=== PATIENT | female | born 1970 | race Two or more races ===

== ENCOUNTER 2025-09-12 12:45 | Day surgery (SDC) | payer MEDICAID, SELFPAY ==
[2025-09-09 07:29] VITALS: BMI 31.8
--- NOTE | 2025-09-09 08:10 | EKG_ITS ---
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
[2025-09-09 08:38] LABS: Collection Type, Urine Clean Catch
[2025-09-09 08:44] LABS: Basophils # (Auto) 0.0 Thou/mm3 (0.0-0.2); Basophils % (Auto) 1 % (0-2.5); Eosinophils # (Auto) 0.1 Thou/mm3 (0.0-0.5); Eosinophils % (Auto) 2 % (0-10); Hematocrit 34.7 % (36.0-46.0); Hemoglobin 11.5 g/dL (12.0-16.0); Immature Granulocytes Auto 0.01 Thou/mm3 (0.00-0.00); Lymphocytes # (Auto) 1.6 Thou/mm3 (1.0-4.8); Lymphocytes % (Auto) 37 % (10-50); Mean Corpuscular HGB Conc 33.1 g/dl (31.0-37.0); Mean Corpuscular Hemoglobin 29.1 pg (25.0-35.0); Mean Corpuscular Volume 88 fL (80-100); Monocytes # (Auto) 0.4 Thou/mm3 (0.0-0.8); Monocytes % (Auto) 10 % (0-12); Neutrophils # (Auto) 2.2 Thou/mm3 (1.8-7.7); Neutrophils % (Auto) 50 % (37-80); Nucleated Red Blood Cell # 0.00 Thou/mm3 (0.00-0.00); Nucleated Red Blood Cell % 0 /100 WBC (0); Platelet Count 225 Thou/mm3 (140-440); RDW Standard Deviation 38.9 fL (36.4-46.3); Red Blood Count 3.95 Miln/mm3 (4.00-5.20); White Blood Count 4.4 Thou/mm3 (3.6-11.0)
[2025-09-09 08:52] LABS: Partial Thromboplastin Time 26.8 Seconds (22.0-36.0)
[2025-09-09 08:54] LABS: Bacteria,Urine Rare; Bilirubin,Urine Negative (Negative); Blood,Urine Negative (Negative); Clarity,Urine Clear (Clear/Hazy); Color,Urine Lt-Yellow (Lt Yel-Yel); Glucose, Urine Trace (Negative); Hyaline Casts,Urine < 1 /hpf (0-1); Ketones,Urine Negative (Negative); Leukocyte Esterase,Urine Positive (Negative); Nitrite,Urine Negative (Negative); PH,Urine 5.5 (5.0-7.0); Protein,Urine Negative (Neg - Trace); RBC,Urine 2 /hpf (0-3); Specific Gravity,Urine 1.015 (1.001-1.035); Squamous Epithelial Cell,Urine 3 /hpf (0-5); Urobilinogen,Urine Negative mg/dL (0.0-1.0); WBC,Urine 14 /hpf (0-5)
[2025-09-09 09:13] LABS: Alanine Aminotransferase 13 U/L (10-49); Albumin, Serum 4.4 gm/dL (3.5-5.0); Albumin/Globulin Ratio 1.1 (1.2-2.2); Alkaline Phosphatase 103 U/L (46-116); Anion Gap 9 (7-16); Aspartate Amino Transferase 17 U/L (0-34); BUN/Creatinine Ratio 32 Ratio (12-20); Bilirubin,Total 0.3 mg/dL (0.3-1.2); Blood Urea Nitrogen 32 mg/dL (9-23); Calcium 9.4 mg/dL (8.3-10.6); Calcium (Corrected) 9.4 mg/dL (8.5-10.1); Carbon Dioxide 24.8 mMol/L (20.0-31.0); Chloride 106 mMol/L (98-107); Creatinine (Component) 1.0 mg/dL (0.6-1.3); Estimated Creatinine Clearance 62.7 mL/min (>60); Globulin 4.0 gm/dL (2.3-3.5); Glucose 210 mg/dL (74-106); Osmolality,Calculated 292 (275-295); Potassium 5.0 mMol/L (3.4-5.1); Sodium 140 mMol/L (136-145); Total Protein 8.4 gm/dL (5.7-8.2); eGFR > 60 See Note
[2025-09-12] VITALS (8 sets, daily range): BP systolic 120–165; BP diastolic 59–79; PULSE 76–89; RESP 13–20; TEMP 36.2–36.9; O2SAT 97–100; BMI 30.8
--- NOTE | 2025-09-12 18:03 | SUR.PHASEI ---
pt received from OR in recovery bay 1. pt asleep but responds to voice, breathing unlabored on oxymask 4l. v/s stable. pt dressing to abd x4 cdi. report received from Dr. Cortes and Amie POOL.
--- NOTE | 2025-09-12 18:14 | PD.SUROPNT ---
Date of Procedure 09/12/25 Pre Op Diagnosis Cholecystitis cholelithiasis and incarcerated umbilical hernia Post Op Diagnosis Same. Procedure Laparoscopic cholecystectomy for a difficult gallbladder and repair of incarcerated umbilical hernia measuring about 7 cm and partial omentectomy. On 09/12/2025 Findings This patient has a large umbilical hernia that was incarcerated. Hernia required repair. Umbilicus hernia showed omental incarceration and lysis of adhesions was carried out and then omentum was removed. Within the gallbladder there was a large stone measuring about 10 cm x 8 cm x 8 cm. This was a difficult cholecystectomy because of chronic scar tissue all around. Posterior view of safety was achieved. Procedure Description In the preop area the procedure was discussed with the patient including risks benefits and alternatives. The risks include possible laparotomy, bleeding, infection bile duct injury and bile leak. Patient may require ERCP for retained stone or a bile leak. The anesthesia risks are to be explained to the patient by the anesthesiologist. Informed consent was obtained. The patient was positioned supine on the operating table and general anesthesia was administered in a satisfactory manner by the anesthesiologist. A timeout procedure was carried out. The patient is positioned in the reverse Trendelenburg position with the right side up. Orogastric tube is introduced into the stomach to decompress the stomach. Prophylactic antibiotics were given in timely manner. Antiembolism measures were taken. The abdomen chest and groin regions were prepped and draped in usual manner. A infraumbilical vertical incision was made and deepened through the layers of abdominal wall and the incarcerated umbilical hernia is noted this required extensive dissection around the hernia hernia sac was opened and omentum was noted omentum could not be reduced and therefore required resection. The incarcerated omentum was sequentially ligated with clamps and was divided and omentum was removed as specimen. Hernia sac is also resected at the same time. Open laparoscopic procedure is carried out. The balloon cannula was introduced and pneumoperitoneum is achieved. A 30? scope was used. Under direct vision right subxiphoid, midclavicular and anterior axillary line trochars were introduced. The gallbladder is then lifted up and a laparoscopic lysis of adhesions was carried out. The gallbladder is very tense and I attempted to put in a needle to decompress that as if it was hydrops nothing happen it seems that there is a either a tumor or a big stone in the gallbladder that is not alarming decompression. After this the gallbladder is freed from the adhesions and the jake hepatis is exposed. The triangle of Calot is gently dissected and the artery to cystic duct is divided with harmonic ultrasonic loren. There is a significant amount of scar chronic scar tissue in the jake hepatis that made the dissection and procedures much slower. The posterior view of safety was achieved. The cystic artery and cystic duct are identified individually and they were ligated close to the gallbladder with hemoclips. There was an accessory cystic artery as well as multiple branches of the cystic artery proper. They were all individually controlled and divided. The cystic artery and the cystic duct are divided between the hemoclips close to the gallbladder. Care was taken to avoid tenting of the common duct. There is a significant length of cystic duct stump towards the common bile duct. The gallbladder is dissected and lifted from the liver bed using harmonic ultrasonic loren and a hook electrocautery. The gallbladder bed hemostasis is achieved. The gallbladder is retrieved out of the peritoneal cavity in a specimen bag. The balloon cannula is reintroduced and pneumoperitoneum is reestablished. The peritoneal cavity is thoroughly irrigated with sterile saline solution and hemostasis again ascertained. All the cannulas are removed under direct vision there is no bleeding from the cannula sites. The large umbilical hernia defect was then repaired using 0 Vicryl continuous suture. The linea alba repair is also carried out with the 0 Vicryl continuous suture. The subcutaneous tissues approximated by a 3-0 chromic and skin by dotty. For the rest of the trocar site incisions are closed in 2 layers with a 3-0 chromic and 4-0 monocril subcuticular stitch. Steri-Strips are applied. Sterile dressings are applied. Complications none. Patient is transferred to the recovery room in a satisfactory condition. Anesthesia GETA Drains None. Implants None. Pathology / specimen Other (Gallbladder with contents, omentum, umbilical hernia sac) Estimated Blood Loss 10 Condition Stable Disposition PACU Surgeon Nadir Cristobal MD Surgical Staff Operation Date: 09/12/25 15:00 Case Staff Anesthesiologist: Mariano Yañez Anesthesiologist: Martin Cortes RNbuilding analyst/supervisor: Georgina Hawkins surgical services director Amie POOL industrial gas fitter
--- NOTE | 2025-09-12 19:22 | SUR.PHASEII ---
pt awake and alert, breathing unlabored on room air. v/s stable. pt dressing to abd x cdi. pt able to ambulate to wheelchair with steady gait. d/c instructions given with daughter Meenakshi in room using lozenge maker Sonali Nava, all questions answered. pt d/c via wheelchair with all belongings.
--- NOTE | 2025-09-19 17:11 | PD.ANESPROG ---
Documentation for date of: 09/19/25 POST ANESTHESIA NOTE: Patient had GETA for lap cholecystectomy and umbillical hernia repair on 09/12/25. Aneesthesia was started by my colleage and taken over by me. I just called her number for follow up but no answer. Martin Cortes MD Anesthesia Progress Note Progress Note Most recent Vital Signs: Last Vital Signs Temp 97.4 F 09/12/25 19:00 Pulse 89 09/12/25 19:00 Resp 13 09/12/25 19:00 BP 120/77 09/12/25 19:00 Pulse Ox 99 09/12/25 19:00 O2 Flow Rate 4 09/12/25 18:15
== END 2025-09-12 19:22 | disposition home or self-care (01) ==
LOC: S2EX 19:31
PROVIDERS: PCP Physician Assistant; Referring Provider Specialist; Visit Provider Specialist
PROC: 0FT44ZZ Resection of Gallbladder, Percutaneous Endoscopic Approach (ICD-10-PCS; CPT 47562; principal; 2025-09-12 14:45)
PROC: (CPT 47562; 2025-09-12 14:45)
DX: K80.10 Calculus of gallbladder with chronic cholecystitis without obstruction (principal); K42.0 Umbilical hernia with obstruction, without gangrene; Z01.810 Encounter for preprocedural cardiovascular examination
CPT/HCPCS: 47562; 49594; 36415; 80053; 81001; 85025; 85730; 93005; A4217; A4649; J0131; J0690; J1100; J1885; J2250; J2405; J2704; J3010; J3490